=== PATIENT | male | born 1945 | race Caucasian/White ===

== ENCOUNTER → 2017-04-01 | Outpatient (CLI) | payer OTHER | LOC: CIMAGING 09:09 | PROVIDERS: ATTEND Physician Assistant Medical | DX: I48.91 Unspecified atrial fibrillation (principal); Z79.899 Other long term (current) drug therapy | CPT/HCPCS: 71020-PO ==

== ENCOUNTER 2018-01-13 12:27 | Inpatient (IN) | payer OTHER ==
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
[2018-01-13 14:00] LABS: INR 2.72 (0.83-1.16); PROTIME(PATIENT) 28.8 SEC (12.0-15.0)
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
[2018-01-13 15:13] LABS: PLATELET COUNT 123 10^3/uL (150-400)
[2018-01-13] MEDS ORDERED: NALOXONE HCL 0.4 MG/ML INJ IVP PRN (15:19)
[2018-01-13] MEDS ORDERED: ONDANSETRON 4 MG/2 ML VIAL IVP PRN (15:19)
[2018-01-13] MEDS ORDERED: ACETAMINOPHEN 500 MG TAB ONE (15:30)
[2018-01-13] MEDS ORDERED: ACETAMINOPHEN 500 MG TAB PO ONE (15:35)
[2018-01-13] MEDS ORDERED: HUMAN PROTHROMBIN COMPLX(PCC) 1 UNIT/0.04 ML VIAL IV ONE (16:05)
[2018-01-13] MEDS ORDERED: TRANEXAMIC ACID 1,000 MG in NS 100 ML IV ONE (16:05)
[2018-01-13] MEDS ORDERED: TRANEXAMIC ACID 1,000 MG/10 ML VIAL ONE (16:12)
[2018-01-13] MEDS ORDERED: PHYTONADIONE 10 MG in NS 50 ML IV ONE (16:12)
[2018-01-13] MEDS ORDERED: NS 100 ML BAG IV ONE (16:12)
[2018-01-13] MEDS ORDERED: HUMAN PROTHROMBIN COMPLX(PCC) 2,500 UNIT/100 ML VIAL IV ONE (16:15)
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
--- NOTE | 2018-01-13 17:05 | ASMTCMCOM ---
CM Note CM Note Notes: See ER report for details. Met with patient and his daughter Claudette at the bedside while Dr. Tsai and Dr. Frances discussing options reagrding surgery vs. medical management. Patient is alert and oriented, and Claudette is supportive at bedside. Plan at this time is to continue close observation in the ICU and continued medical management/neurological observation. I have provided patient and his daughter with an overview of what to expect in the ICU, and offered to answer any questions at this time. Patient to transfer to ICU as soon as bed available and CM will follow/be available PRN for support Date Signed: 01/13/2018 05:04 PM Electronically Signed By:Erica Lomas RN
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
[2018-01-13] MEDS: ACETAMINOPHEN 325 MG TAB PO PRN (19:29)
[2018-01-13] MEDS: levETIRAcetam 750 MG in NS 100 ML IV SCH (22:36)
[2018-01-13] MEDS: FAMOTIDINE 20 MG/NACL 50 ML IV SCH (22:36)
[2018-01-14] MEDS: ACETAMINOPHEN 325 MG TAB PO PRN (00:47)
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
[2018-01-14] MEDS: levETIRAcetam 500 MG TAB PO SCH ×2 (11:22→20:44)
[2018-01-14] MEDS: levETIRAcetam 750 MG in NS 100 ML IV SCH (12:03)
[2018-01-14] MEDS: FAMOTIDINE 20 MG/NACL 50 ML IV SCH (12:03)
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
[2018-01-14] MEDS ORDERED: HYDROmorphONE/DILAUDID 2 MG TAB PO PRN (15:56)
[2018-01-14] MEDS ORDERED: AMIODARONE HCL 200 MG TAB PO SCH (16:00)
--- NOTE | 2018-01-14 16:04 | TRAUMAPNT ---
Trauma Tertiary Progress Note New Findings: Complains of left chest wall pain - CXR suspicious for at least a left 7th or 8th rib fracture - report pending Assessment/Plan: 01/14/2018 Assessment: Neuro intact. no further CT unless sx noted per neuro May have left rib fracture(s) Plan: CXR report and F/u in AM continue neuro checks F/u labs in AM Transfer to SDU Subjective: my left ribs are sore Objective: Vital Signs Temp Pulse Resp BP Pulse Ox 36.8 C 60 23 H 122/57 H 95 01/14/18 11:45 01/14/18 11:45 01/14/18 11:45 01/14/18 11:45 01/14/18 11:45 01/13/18 01/14/18 01/15/18 05:59 05:59 05:59 Intake Total 300 Output Total 2300 Balance -2000 PT 28.8 SEC (12.0-15.0) H 01/13/18 13:15 INR 2.72 (0.83-1.16) H 01/13/18 13:15 Physical Exam - Physical Exam General Appearance: WD/WN, alert, no apparent distress Neck: non-tender, full range of motion, supple Respiratory: lungs clear, normal breath sounds, other (No E to A changes inspite opf atlectasis seen on CXR. tender to lat compression at mid left chest) Cardiac/Chest: regular rate, rhythm Abdomen: normal bowel sounds, non-tender, soft Male Genitalia: deferred Rectal: deferred Back: Normal inspection Skin: normal color, warm/dry Extremities: normal range of motion, non-tender, normal inspection Neuro/Psych: no motor/sensory deficits, alert, normal mood/affect, oriented x 3 Time Spent w/Patient (minutes): 25
--- NOTE | 2018-01-14 16:08 | TRAUMAPN ---
Trauma Progress Note Assessment/Plan: 01/14/2018 Assessment: Neuro intact. no further CT unless sx noted per neuro May have left rib fracture(s) Plan: CXR report and F/u in AM continue neuro checks F/u labs in AM Transfer to SDU Addendum: Patient is on amiodarone, 100 mg / days for afib. Medication started Objective: Vital Signs Temp Pulse Resp BP Pulse Ox 36.8 C 60 23 H 122/57 H 95 01/14/18 11:45 01/14/18 11:45 01/14/18 11:45 01/14/18 11:45 01/14/18 11:45 01/13/18 01/14/18 01/15/18 05:59 05:59 05:59 Intake Total 300 Output Total 2300 Balance -2000 PT 28.8 SEC (12.0-15.0) H 01/13/18 13:15 INR 2.72 (0.83-1.16) H 01/13/18 13:15
[2018-01-14] MEDS: ATORVASTATIN CALCIUM 10 MG TAB PO SCH (16:48)
[2018-01-14] MEDS: AMIODARONE HCL 200 MG TAB PO SCH (16:48)
[2018-01-14] MEDS: IBUPROFEN 200 MG TAB PO SCH (16:48)
[2018-01-14] MEDS: ACETAMINOPHEN 325 MG TAB PO SCH (16:49)
[2018-01-14] MEDS: LIDOCAINE 4%/MENTHOL 1% PATCH TD SCH (16:51)
[2018-01-14] MEDS: FAMOTIDINE 20 MG TAB PO SCH (20:41)
[2018-01-14] MEDS: PATCH REMOVAL 1 EA PATCH TD SCH (20:41)
[2018-01-15] MEDS: ACETAMINOPHEN 325 MG TAB PO SCH ×3 (02:15→16:19)
[2018-01-15] MEDS: IBUPROFEN 200 MG TAB PO SCH ×4 (02:15→17:47)
[2018-01-15 05:14] LABS: PLATELET COUNT 101 10^3/uL (150-400)
[2018-01-15 05:45] LABS: INR 1.07 (0.83-1.16); PROTIME(PATIENT) 14.1 SEC (12.0-15.0)
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
[2018-01-15] MEDS: levETIRAcetam 500 MG TAB PO SCH ×2 (09:25→21:04)
[2018-01-15] MEDS: AMIODARONE HCL 200 MG TAB PO SCH (09:26)
[2018-01-15] MEDS: ATORVASTATIN CALCIUM 10 MG TAB PO SCH (09:26)
[2018-01-15] MEDS: FAMOTIDINE 20 MG TAB PO SCH ×2 (09:27→21:04)
[2018-01-15] MEDS: LIDOCAINE 4%/MENTHOL 1% PATCH TD SCH (09:28)
[2018-01-15] MEDS ORDERED: BISACODYL 10 MG SUPP PR PRN (16:03)
[2018-01-15] MEDS ORDERED: POLYETHYLENE GLYCOL 3350 17 GM PKT PO PRN (16:03)
[2018-01-15] MEDS ORDERED: MAGNESIUM HYDROXIDE 30 ML UDCUP PO PRN (16:03)
[2018-01-15] MEDS ORDERED: LACTULOSE 20 GM/30 ML UDCUP PO PRN (16:03)
--- NOTE | 2018-01-15 17:01 | ASMTCMCOM ---
CM Note CM Note Notes: Spoke with Jenny at [facility] who states she is still in the process of getting an insurance auth for patient. Jenny states patient will need a back up plan because frequently [employer] plan does not reimburse for inpatient rehab services. She will let us know tomorrow if she has heard anything back from insurance. Will meet with patient tomorrow to explore other possibilities. CM will follow. Date Signed: 01/15/2018 05:00 PM Electronically Signed By:Sandra Wade LCSW
--- NOTE | 2018-01-15 20:38 | TRAUMAPN ---
Trauma Progress Note Assessment/Plan: 01/14/2018 Assessment: Neuro intact. no further CT unless sx noted per neuro May have left rib fracture(s) Plan: CXR report and F/u in AM continue neuro checks F/u labs in AM Transfer to SDU Addendum: Patient is on amiodarone, 100 mg / days for afib. Medication started 01/15/2018 Assessment: Neuro intact. AM ct today shows slight improvement. No chemical DVT prophylaxis yet (no coumadin for 3 weeks) He is up walking, need for SCDs stressed. No rib fractures on CXR, Pain control better with medication adjustment. Plan: Hope to transfer to rehab or med/surg in AM Subjective: I'm feeling better, Moved bowels today Objective: Vital Signs Temp Pulse Resp BP Pulse Ox 36.4 C 51 L 16 115/60 97 01/15/18 16:00 01/15/18 16:00 01/15/18 16:00 01/15/18 16:00 01/15/18 16:00 Laboratory Results 01/15/18 05:00 01/15/18 05:00 01/14/18 01/15/18 01/16/18 05:59 05:59 05:59 Intake Total 300 300 440 Output Total 2300 Balance -2000 300 440 PT 14.1 SEC (12.0-15.0) 01/15/18 05:00 INR 1.07 (0.83-1.16) 01/15/18 05:00 Physical Exam - Physical Exam General Appearance: WD/WN, alert, no apparent distress Neck: non-tender, full range of motion, supple Respiratory: lungs clear, normal breath sounds Cardiac/Chest: regular rate, rhythm Abdomen: normal bowel sounds, non-tender Male Genitalia: deferred Rectal: deferred Back: Normal inspection Skin: normal color, warm/dry Neuro/Psych: no motor/sensory deficits, alert, normal mood/affect, oriented x 3 Time Spent w/Patient (minutes): 25
[2018-01-15] MEDS: SENNOSIDES/DOCUSATE SODIUM TAB PO SCH (21:04)
[2018-01-16] MEDS: ACETAMINOPHEN 325 MG TAB PO SCH ×3 (00:05→18:30)
[2018-01-16] MEDS: IBUPROFEN 200 MG TAB PO SCH ×4 (00:05→18:21)
[2018-01-16] MEDS: PATCH REMOVAL 1 EA PATCH TD SCH (00:07)
[2018-01-16 07:41] VITALS: BP 148/78
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
[2018-01-16] MEDS: FAMOTIDINE 20 MG TAB PO SCH (08:24)
[2018-01-16] MEDS: ATORVASTATIN CALCIUM 10 MG TAB PO SCH (08:24)
[2018-01-16] MEDS: levETIRAcetam 500 MG TAB PO SCH ×2 (08:24→18:20)
[2018-01-16] MEDS: AMIODARONE HCL 200 MG TAB PO SCH (08:24)
[2018-01-16] MEDS: LIDOCAINE 4%/MENTHOL 1% PATCH TD SCH (08:26)
[2018-01-16] MEDS: SENNOSIDES/DOCUSATE SODIUM TAB PO SCH (08:44)
--- NOTE | 2018-01-16 16:33 | ASMTCMCOM ---
CM Note CM Note Notes: Spoke with patient's nurse who states PT/OT have cleared patient to return home. However, she states patient's daughter is concerned he have some home health follow up. Contacted [facility] home health and they will set up a visit to evaluate patient for home health tomorrow or Saturday. They are aware patient may be d/c'ed today. CM available if any further needs arise. Date Signed: 01/16/2018 04:32 PM Electronically Signed By:Sandra Wade LCSW
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
--- NOTE | 2018-01-16 18:03 | TRAUMAPN ---
Trauma Progress Note Assessment/Plan: 01/14/2018 Assessment: Neuro intact. no further CT unless sx noted per neuro May have left rib fracture(s) Plan: CXR report and F/u in AM continue neuro checks F/u labs in AM Transfer to SDU Addendum: Patient is on amiodarone, 100 mg / days for afib. Medication started 01/15/2018 Assessment: Neuro intact. AM ct today shows slight improvement. No chemical DVT prophylaxis yet (no coumadin for 3 weeks) He is up walking, need for SCDs stressed. No rib fractures on CXR, Pain control better with medication adjustment. Plan: Hope to transfer to rehab or med/surg in AM 01/16/2018 Assessment: Doing well. Plan is to discharge home for Home health care today Subjective: no complaints Objective: Vital Signs Temp Pulse Resp BP Pulse Ox 36.7 C 43 L 18 148/78 H 96 01/16/18 07:39 01/16/18 07:39 01/16/18 07:39 01/16/18 07:39 01/16/18 07:39 Laboratory Results 01/15/18 05:00 01/15/18 05:00 01/15/18 01/16/18 01/17/18 05:59 05:59 05:59 Intake Total 300 840 400 Output Total 350 Balance 300 490 400 PT 14.1 SEC (12.0-15.0) 01/15/18 05:00 INR 1.07 (0.83-1.16) 01/15/18 05:00 Physical Exam - Physical Exam General Appearance: WD/WN, alert, no apparent distress Respiratory: chest non-tender, lungs clear, normal breath sounds Cardiac/Chest: regular rate, rhythm Abdomen: normal bowel sounds, non-tender, soft Male Genitalia: deferred Rectal: deferred Back: Normal inspection Skin: normal color, warm/dry Extremities: normal range of motion, non-tender, normal inspection Neuro/Psych: no motor/sensory deficits, alert, normal mood/affect, oriented x 3 Time Spent w/Patient (minutes): 15
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
== END 2018-01-16 18:30 | disposition home health service (06) | DRG 87 ==
LOC: CED 12:27 → F2N 17:34
PROVIDERS: ADMIT Surgery; ATTEND Surgery
PROC: 30283B1 Transfusion of Nonautologous 4-Factor Prothrombin Complex Concentrate into Vein, Percutaneous Approach (ICD-10-PCS; principal; 2018-01-13)
PROC: 30233L1 Transfusion of Nonautologous Fresh Plasma into Peripheral Vein, Percutaneous Approach (ICD-10-PCS; 2018-01-16)
DX: S06.5X0A Traumatic subdural hemorrhage without loss of consciousness, initial encounter (principal); S20.219A Contusion of unspecified front wall of thorax, initial encounter; I48.91 Unspecified atrial fibrillation; Z79.01 Long term (current) use of anticoagulants; V18.0XXA Pedal cycle driver injured in noncollision transport accident in nontraffic accident, initial encounter; E78.5 Hyperlipidemia, unspecified; Z86.718 Personal history of other venous thrombosis and embolism; Z86.711 Personal history of pulmonary embolism
CPT/HCPCS: 70450-PO; 80048-PO; 92507-GN; 92523-GN; 97112-GP; 97116-GP; 97161-GP; 97166-GO; 97530-GP; 97535-GO; C9132; G0515-GO; G8978-GP-CK; G8979-GP-CI; G8987-GO-CK; G8988-GO-CI; G8989-GO-CI; G9165-GN-CI; G9166-GN-CI; G9167-GN-CI; J1953; J2405; J3430; P9016; P9017

== ENCOUNTER 2018-01-28 11:16 | Inpatient (IN) | payer OTHER ==
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
[2018-01-28] MEDS ORDERED: BISACODYL 10 MG SUPP PR PRN (17:24)
--- NOTE | 2018-01-28 17:39 | PDOREHIP ---
[facility]mission [facility] - Admission - 3 Day Assessment Period Admission Date/Day 1: 01/28/18 Day 2: 01/29/18 Day 3: 01/30/18 - Active Diagnoses Comorbidities and Co-existing Conditions at Admission: 17458. None of the Above - Skin Conditions Unhealed Pressure Ulcer (1 or more/Stage 1 or >)-Admission: 0. No
[2018-01-28] MEDS: levETIRAcetam 500 MG TAB PO SCH (21:32)
[2018-01-28] MEDS: traZODone 50 MG TAB PO SCH (21:33)
[2018-01-28] MEDS: ATORVASTATIN CALCIUM 10 MG TAB PO SCH (21:34)
[2018-01-28] MEDS: SENNOSIDES/DOCUSATE SODIUM TAB PO SCH (21:35)
[2018-01-28] MEDS: oxyCODONE IR 5 MG TAB PO PRN (21:40)
[2018-01-28] MEDS: ACETAMINOPHEN 500 MG TAB PO PRN (22:53)
[2018-01-29] MEDS: oxyCODONE IR 5 MG TAB PO PRN ×2 (06:03→15:39)
[2018-01-29 08:14] LABS: PLATELET COUNT 184 10^3/uL (150-400)
[2018-01-29 08:27] LABS: INR 1.03 (0.83-1.16); PROTIME(PATIENT) 13.7 SEC (12.0-15.0)
[2018-01-29] MEDS: AMIODARONE HCL 200 MG TAB PO SCH (08:36)
[2018-01-29] MEDS: levETIRAcetam 500 MG TAB PO SCH ×2 (08:39→20:48)
[2018-01-29] MEDS: POLYETHYLENE GLYCOL 3350 17 GM PKT PO SCH (08:40)
[2018-01-29] MEDS: TAMSULOSIN HCL 0.4 MG CAP PO SCH (08:40)
[2018-01-29] MEDS: SENNOSIDES/DOCUSATE SODIUM TAB PO SCH ×2 (08:41→20:52)
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
[2018-01-29] MEDS: traZODone 50 MG TAB PO SCH (20:49)
[2018-01-29] MEDS: ATORVASTATIN CALCIUM 10 MG TAB PO SCH (20:49)
[2018-01-30] MEDS: TAMSULOSIN HCL 0.4 MG CAP PO SCH (08:34)
[2018-01-30] MEDS: levETIRAcetam 500 MG TAB PO SCH ×2 (08:34→20:33)
[2018-01-30] MEDS: AMIODARONE HCL 200 MG TAB PO SCH (08:34)
[2018-01-30] MEDS: SENNOSIDES/DOCUSATE SODIUM TAB PO SCH ×2 (09:54→22:02)
[2018-01-30] MEDS: POLYETHYLENE GLYCOL 3350 17 GM PKT PO SCH (09:54)
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
[2018-01-30] MEDS: LISINOPRIL 5 MG TAB PO SCH (13:29)
[2018-01-30] MEDS: ATORVASTATIN CALCIUM 10 MG TAB PO SCH (20:33)
[2018-01-30] MEDS: traZODone 50 MG TAB PO SCH (20:34)
[2018-01-30] MEDS: oxyCODONE IR 5 MG TAB PO PRN (20:42)
[2018-01-30] MEDS: ACETAMINOPHEN 500 MG TAB PO PRN (20:43)
[2018-01-31] MEDS: LISINOPRIL 5 MG TAB PO SCH (08:04)
[2018-01-31] MEDS: AMIODARONE HCL 200 MG TAB PO SCH (08:06)
[2018-01-31] MEDS: levETIRAcetam 500 MG TAB PO SCH ×2 (08:06→20:29)
[2018-01-31] MEDS: SENNOSIDES/DOCUSATE SODIUM TAB PO SCH ×2 (08:07→21:18)
[2018-01-31] MEDS: POLYETHYLENE GLYCOL 3350 17 GM PKT PO SCH (08:07)
[2018-01-31] MEDS: TAMSULOSIN HCL 0.4 MG CAP PO SCH (08:07)
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
[2018-01-31] MEDS: ATORVASTATIN CALCIUM 10 MG TAB PO SCH (20:29)
[2018-01-31] MEDS: traZODone 50 MG TAB PO SCH (20:29)
[2018-01-31] MEDS: ACETAMINOPHEN 500 MG TAB PO PRN (20:36)
[2018-01-31] MEDS: oxyCODONE IR 5 MG TAB PO PRN (20:36)
[2018-02-01] MEDS: POLYETHYLENE GLYCOL 3350 17 GM PKT PO SCH (09:08)
[2018-02-01] MEDS: SENNOSIDES/DOCUSATE SODIUM TAB PO SCH ×2 (09:08→21:42)
[2018-02-01] MEDS: AMIODARONE HCL 200 MG TAB PO SCH (09:08)
[2018-02-01] MEDS: TAMSULOSIN HCL 0.4 MG CAP PO SCH (09:08)
[2018-02-01] MEDS: levETIRAcetam 500 MG TAB PO SCH ×2 (09:09→21:50)
[2018-02-01] MEDS: LISINOPRIL 5 MG TAB PO SCH (09:09)
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
[2018-02-01] MEDS: traZODone 50 MG TAB PO SCH (21:50)
[2018-02-01] MEDS: ATORVASTATIN CALCIUM 10 MG TAB PO SCH (21:50)
[2018-02-02] MEDS: ACETAMINOPHEN 500 MG TAB PO PRN (00:12)
[2018-02-02] MEDS: oxyCODONE IR 5 MG TAB PO PRN ×2 (00:13→21:31)
[2018-02-02] MEDS: AMIODARONE HCL 200 MG TAB PO SCH (08:36)
[2018-02-02] MEDS: TAMSULOSIN HCL 0.4 MG CAP PO SCH (08:37)
[2018-02-02] MEDS: levETIRAcetam 250 MG TAB PO SCH ×2 (08:37→21:32)
[2018-02-02] MEDS: SENNOSIDES/DOCUSATE SODIUM TAB PO SCH ×2 (08:37→21:32)
[2018-02-02] MEDS: LISINOPRIL 5 MG TAB PO SCH (08:38)
[2018-02-02] MEDS: POLYETHYLENE GLYCOL 3350 17 GM PKT PO SCH (08:38)
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
[2018-02-02] MEDS: traZODone 50 MG TAB PO SCH (21:32)
[2018-02-02] MEDS: MELATONIN 3 MG TAB PO SCH (21:32)
[2018-02-02] MEDS: ATORVASTATIN CALCIUM 10 MG TAB PO SCH (21:32)
[2018-02-03] MEDS: AMIODARONE HCL 200 MG TAB PO SCH (07:26)
[2018-02-03] MEDS: levETIRAcetam 250 MG TAB PO SCH ×2 (07:26→21:54)
[2018-02-03] MEDS: POLYETHYLENE GLYCOL 3350 17 GM PKT PO SCH (07:27)
[2018-02-03] MEDS: LISINOPRIL 5 MG TAB PO SCH (07:27)
[2018-02-03] MEDS: SENNOSIDES/DOCUSATE SODIUM TAB PO SCH ×2 (07:28→22:18)
[2018-02-03] MEDS: TAMSULOSIN HCL 0.4 MG CAP PO SCH (07:28)
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
[2018-02-03] MEDS: ATORVASTATIN CALCIUM 10 MG TAB PO SCH (21:54)
[2018-02-03] MEDS: LIDOCAINE 4%/MENTHOL 1% PATCH TD SCH (22:06)
[2018-02-03] MEDS: MELATONIN 3 MG TAB PO SCH (22:16)
[2018-02-03] MEDS: traZODone 50 MG TAB PO SCH (22:16)
[2018-02-03] MEDS: oxyCODONE IR 5 MG TAB PO PRN (22:20)
[2018-02-04] MEDS: levETIRAcetam 250 MG TAB PO SCH (08:46)
[2018-02-04] MEDS: AMIODARONE HCL 200 MG TAB PO SCH (08:47)
[2018-02-04] MEDS: TAMSULOSIN HCL 0.4 MG CAP PO SCH (08:47)
[2018-02-04] MEDS: LISINOPRIL 5 MG TAB PO SCH (08:48)
[2018-02-04] MEDS: POLYETHYLENE GLYCOL 3350 17 GM PKT PO SCH (08:48)
[2018-02-04] MEDS: SENNOSIDES/DOCUSATE SODIUM TAB PO SCH ×2 (08:49→21:11)
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
[2018-02-04] MEDS: PATCH REMOVAL 1 EA PATCH TD SCH (10:06)
[2018-02-04] MEDS: traZODone 50 MG TAB PO SCH (21:06)
[2018-02-04] MEDS: MELATONIN 3 MG TAB PO SCH (21:06)
[2018-02-04] MEDS: LIDOCAINE 4%/MENTHOL 1% PATCH TD SCH (21:07)
[2018-02-04] MEDS: ATORVASTATIN CALCIUM 10 MG TAB PO SCH (21:07)
[2018-02-04] MEDS: oxyCODONE IR 5 MG TAB PO PRN (21:10)
[2018-02-04] MEDS: MAG HYDROX/AL HYDROX/SIMETH 30 ML UDCUP PO PRN (22:04)
[2018-02-05] MEDS: AMIODARONE HCL 200 MG TAB PO SCH (08:07)
[2018-02-05] MEDS: LISINOPRIL 5 MG TAB PO SCH (08:09)
[2018-02-05] MEDS: TAMSULOSIN HCL 0.4 MG CAP PO SCH (08:09)
[2018-02-05] MEDS: SENNOSIDES/DOCUSATE SODIUM TAB PO SCH ×2 (08:45→21:58)
[2018-02-05] MEDS: POLYETHYLENE GLYCOL 3350 17 GM PKT PO SCH (08:45)
[2018-02-05] MEDS: PATCH REMOVAL 1 EA PATCH TD SCH (08:45)
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
[2018-02-05] MEDS: ATORVASTATIN CALCIUM 10 MG TAB PO SCH (21:57)
[2018-02-05] MEDS: MELATONIN 3 MG TAB PO SCH (21:57)
[2018-02-05] MEDS: traZODone 50 MG TAB PO SCH (21:57)
[2018-02-05] MEDS: LIDOCAINE 4%/MENTHOL 1% PATCH TD SCH (21:58)
[2018-02-05] MEDS: oxyCODONE IR 5 MG TAB PO PRN (22:05)
[2018-02-05] MEDS: MAG HYDROX/AL HYDROX/SIMETH 30 ML UDCUP PO PRN (22:05)
[2018-02-06] MEDS: ACETAMINOPHEN 500 MG TAB PO PRN (05:53)
[2018-02-06] MEDS: oxyCODONE IR 5 MG TAB PO PRN ×2 (05:53→21:36)
[2018-02-06] MEDS: AMIODARONE HCL 200 MG TAB PO SCH (07:52)
[2018-02-06] MEDS: LISINOPRIL 5 MG TAB PO SCH (07:54)
[2018-02-06] MEDS: TAMSULOSIN HCL 0.4 MG CAP PO SCH (07:55)
[2018-02-06] MEDS: POLYETHYLENE GLYCOL 3350 17 GM PKT PO SCH (07:55)
[2018-02-06] MEDS: SENNOSIDES/DOCUSATE SODIUM TAB PO SCH ×2 (07:56→21:36)
[2018-02-06] MEDS: PATCH REMOVAL 1 EA PATCH TD SCH (07:56)
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
--- NOTE | 2018-02-06 12:12 | PDOREHIP ---
Admission [facility] - Admission - 3 Day Assessment Period Admission Date/Day 1: 01/28/18 Day 2: 01/29/18 Day 3: 01/30/18 Discharge [facility] - Discharge - 3 Day Assessment Period 2 Days Prior to Anticipated Discharge Date: 02/05/18 1 Day Prior to Anticipated Discharge Date: 02/06/18 Anticipated Discharge Date: 02/07/18 - Discharge Skin Conditions Unhealed Pressure Ulcer (1 or more/Stage 1 or >)-Discharge: 0. No
[2018-02-06] MEDS: traZODone 50 MG TAB PO SCH (21:28)
[2018-02-06] MEDS: ATORVASTATIN CALCIUM 10 MG TAB PO SCH (21:28)
[2018-02-06] MEDS: MELATONIN 3 MG TAB PO SCH (21:28)
[2018-02-06] MEDS: LIDOCAINE 4%/MENTHOL 1% PATCH TD SCH (21:30)
[2018-02-06] MEDS: MAG HYDROX/AL HYDROX/SIMETH 30 ML UDCUP PO PRN (21:36)
[2018-02-07] MEDS: AMIODARONE HCL 200 MG TAB PO SCH (07:41)
[2018-02-07] MEDS: POLYETHYLENE GLYCOL 3350 17 GM PKT PO SCH (07:42)
[2018-02-07] MEDS: TAMSULOSIN HCL 0.4 MG CAP PO SCH (07:42)
[2018-02-07] MEDS: SENNOSIDES/DOCUSATE SODIUM TAB PO SCH (07:43)
[2018-02-07] MEDS: PATCH REMOVAL 1 EA PATCH TD SCH (07:43)
[2018-02-07] MEDS: LISINOPRIL 5 MG TAB PO SCH (07:45)
[2018-02-07 08:12] VITALS: BP 120/58
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
== END 2018-02-07 17:00 | disposition home health service (06) | DRG 945 ==
LOC: BREH 16:12
PROVIDERS: ADMIT Physical Medicine & Rehabilitation; ATTEND Physical Medicine & Rehabilitation
DX: S06.5X0D Traumatic subdural hemorrhage without loss of consciousness, subsequent encounter (principal); I62.03 Nontraumatic chronic subdural hemorrhage; I48.91 Unspecified atrial fibrillation; W19.XXXD Unspecified fall, subsequent encounter; V19.9XXD Pedal cyclist (driver) (passenger) injured in unspecified traffic accident, subsequent encounter; R33.9 Retention of urine, unspecified; E78.5 Hyperlipidemia, unspecified; Z86.711 Personal history of pulmonary embolism; Z86.718 Personal history of other venous thrombosis and embolism; G47.00 Insomnia, unspecified; Z79.01 Long term (current) use of anticoagulants
CPT/HCPCS: 92507-GN; 92523-GN; 97110-GO; 97110-GP; 97112-GP; 97116-GP; 97161-GP; 97165-GO; 97530-GO; 97530-GP; 97535-GO; G0515-GO

== ENCOUNTER → 2018-03-28 | Outpatient (CLI) | payer OTHER | LOC: CIMAGING 10:37 | PROVIDERS: ATTEND Internal Medicine Interventional Cardiology | DX: J98.11 Atelectasis (principal); Z79.899 Other long term (current) drug therapy | CPT/HCPCS: 71046-PO ==

== ENCOUNTER 2018-04-21 05:35 | Observation (INO) | payer OTHER ==
[2018-04-21] MEDS ORDERED: ceFAZolin 2 GM/DEXTROSE 100 ML IV ONE (05:47)
[2018-04-21] MEDS ORDERED: LR 1,000 ML IV ONE (05:48)
--- NOTE | 2018-04-21 06:51 | PDHPUP ---
History & Physical Update H&P update statement: This history and physical update is based on an assessment of the patient which was completed after admission or registration (within 24 hours), but prior to the surgery/procedure. H&P update: H&P reviewed & patient examined, no change in patient's condition since H&P completed
[2018-04-21] MEDS ORDERED: BUPIVACAINE/EPI 0.5% 30 ML SDV ONE (06:59)
[2018-04-21] MEDS ORDERED: MIDAZOLAM 2 MG/2 ML VIAL IVP ONE (07:10)
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
[2018-04-21] MEDS ORDERED: MIDAZOLAM 2 MG/2 ML VIAL ONE (07:13)
[2018-04-21] MEDS ORDERED: fentaNYL 250 MCG/5 ML INJ ONE (07:21)
[2018-04-21] MEDS ORDERED: PROPOFOL 200 MG/20 ML VIAL ONE (07:21)
[2018-04-21] MEDS ORDERED: ONDANSETRON 4 MG/2 ML VIAL ONE (08:40)
[2018-04-21] MEDS ORDERED: DEXAMETHASONE 4 MG/ML VIAL ONE (08:40)
[2018-04-21] MEDS ORDERED: ROCURONIUM 100 MG/10 ML VIAL ONE (08:40)
[2018-04-21] MEDS ORDERED: LIDOCAINE 2% 2 ML INJ ONE (08:40)
[2018-04-21] MEDS ORDERED: GLYCOPYRROLATE 0.2 MG/1 ML VIAL ONE ×3 (09:12)
[2018-04-21] MEDS ORDERED: NEOSTIGMINE METHYLSULFATE 5 MG/5 ML SYR ONE (09:12)
--- NOTE | 2018-04-21 09:19 | POSTOPPROG ---
Post Op Note Date of Operation: 04/21/18 Surgeon: Georges Martin Material Flow Analyst: RICARDO Grider Anesthesiologist: Briseida Anesthesia: GET(General Endotracheal) Pre-op Diagnosis: RIH Post-op Diagnosis: BIH Procedure: Robotic assisted bilateral inguinal hernia repair with mesh Findings: large indirect defects bilateral Inf/Abcess present in the surg proc area at time of surgery?: No EBL: Minimal
[2018-04-21] MEDS ORDERED: fentaNYL 100 MCG/2 ML INJ ONE (09:36)
[2018-04-21] MEDS ORDERED: ALBUTEROL 3 ML DEYVIAL IH PRN (09:37)
[2018-04-21] MEDS ORDERED: PROMETHAZINE HCL 25 MG/ML INJ IVP PRN (09:37)
[2018-04-21] MEDS ORDERED: HYDROCODONE/APAP 5/325 TAB PO PRN (09:37)
[2018-04-21] MEDS ORDERED: NALOXONE HCL 0.4 MG/ML INJ IVP PRN (09:37)
[2018-04-21] MEDS ORDERED: LR 500 ML IV PRN (09:37)
--- NOTE | 2018-04-21 09:38 | POSTANESTH ---
Post Anesthetic Evaluation Cardiovascular Status: Normal, Stable Respiratory Status: Similar to Pre-op Cond. Level of Consciousness/Mental Status: Mildly Sleepy, Arousable Pain Control: Adequate, Prn Tx Ordered Nausea/Vomiting Control: Adequate, Prn Tx Ordered Complications Possibly Related to Anesthesia: None Noted
[2018-04-21] MEDS: fentaNYL 100 MCG/2 ML INJ IVP PRN ×3 (09:39→10:10)
--- NOTE | 2018-04-21 11:29 | GOP ---
DATE OF OPERATION: 04/21/2018 SURGEON: Georges Martin MD DIE MACHINE OPERATOR: Romelia Grider, RICARDO ANESTHESIA: General endotracheal. ANESTHESIOLOGIST: Dr. Pacheco Goins. PREOPERATIVE DIAGNOSIS: Right inguinal hernia. POSTOPERATIVE DIAGNOSIS: Bilateral inguinal hernias. PROCEDURE PERFORMED: Robotic assisted laparoscopic bilateral inguinal hernia repair with mesh. FINDINGS: Bilateral large indirect defects successfully reduced, repaired with Bard 3D Light site sp ecific mesh. SPECIMENS: None. ESTIMATED BLOOD LOSS: 10 cc. DESCRIPTION OF PROCEDURE: The patient was greeted in the preoperative suite. Once again, risks, alva efits, and alternatives were discussed. Consent was signed. He was then brought back to the operati ve suite, placed on the OR table in supine position. After all anesthesia machines, including SCDs w ere on and functioning, a world Health Organization time-out was performed. After successful inducti on of general anesthesia, the patient's abdomen was prepped and draped in typical sterile fashion. I commenced the procedure by making a supraumbilical cutdown through which the Veress needle was pass ed. I achieved pneumoperitoneum to 15 mmHg, which was well tolerated by the patient. Through this, I then inserted an 8 mm robotic trocar. Once successfully in the abdomen, I placed 2 additional 8 mm trocars, 1 in the right and 1 in the left upper quadrant, both under direct visualization. Once the y were in, the patient was then placed and gentle Trendelenburg position. The robot was then brought in and docked. I turned my attention first towards the right, where the patient had a moderate sized indirect hernia . I made a peritoneal defect just anterior to the ASIS and carried this medial to the pubic tubercle . I carried my dissection down to the visceral sac. I skeletonized all of the cord structures, iden tified a fairly moderate-sized lipoma on that side as well, which was reduced. After skeletonizing t he cord structures, I interrogated the femoral and direct hernia spaces and found no other significan t findings. I then brought my mesh in. I secured it to the Joseph's ligament with an interrupted 2- 0 Vicryl stitch, as well as medially and laterally to the inferior epigastric vessels. It laid flat without any kinks. I then closed the peritoneal defect with a running V-Loc suture. In the same fashion and turned my attention toward the left side, I created the preperitoneal flap in the same fashion. Again, a moderate-sized indirect defect was identified here. The cord structures were skeletonized, identified no direct femoral defects. A site-specific left-sided mesh was odessa t into place. It was attached to Joseph's ligament as well as medial lateral on either side of the i nferior epigastric vessels. It lay flat without any kinks. The peritoneal flap was then closed in a running fashion. The robot was then undocked. I closed the skin with Monocryl over which Dermabond was placed. The p atient was then extubated in the operative suite and taken to the PACU in satisfactory condition. DRAINS: None. COUNTS: All counts were reported as correct x2. /[id number]/MODL
[2018-04-21] MEDS ORDERED: PETROLAT,WHT/MIN OIL/SOD CHL 3.5 GM OPHT.OINT EACHEYE PRN (13:04)
[2018-04-21] MEDS: TOBRAMYCIN/DEXAMETH 5 ML OPHT.BTL EACHEYE PRN ×2 (14:08→23:01)
--- NOTE | 2018-04-21 15:59 | ASMTCMCOM ---
CM Note CM Note Notes: CM reviewed chart for d/c planning. Pt is a 72 y/o male who had surgery today to repair an inguinal hernaia. When pt was d/miranda from the hospital in January he received home services from [facility], RN/PT/OT. PT/OT evals have not been ordered. Megha CM needs have been identified;CM will follow for changes. D/C Plan: Antivipate independent. Date Signed: 04/21/2018 03:58 PM Electronically Signed By:Ann Melendrez
[2018-04-21] MEDS: DOCUSATE SODIUM 100 MG CAP PO SCH ×2 (16:35→20:56)
[2018-04-21] MEDS: oxyCODONE IR 5 MG TAB PO PRN ×2 (17:57→22:48)
[2018-04-21] MEDS ORDERED: MELATONIN 3 MG TAB PO SCH (21:00)
[2018-04-21] MEDS ORDERED: ATORVASTATIN CALCIUM 10 MG TAB PO SCH (21:00)
[2018-04-22] MEDS: oxyCODONE IR 5 MG TAB PO PRN (02:49)
[2018-04-22] MEDS: DOCUSATE SODIUM 100 MG CAP PO SCH ×2 (08:35→15:43)
[2018-04-22] MEDS ORDERED: LISINOPRIL 5 MG TAB PO SCH (09:00)
[2018-04-22] MEDS ORDERED: AMIODARONE HCL 200 MG TAB PO SCH (09:00)
[2018-04-22] MEDS ORDERED: TAMSULOSIN HCL 0.4 MG CAP PO SCH (09:00)
[2018-04-22] MEDS: TOBRAMYCIN/DEXAMETH 5 ML OPHT.BTL EACHEYE PRN (11:42)
[2018-04-22 15:32] VITALS: BP 112/63
--- NOTE | 2018-04-22 15:36 | PDHOMEO2F ---
Home Oxygen Face to Face Home Orders: I certify that a physician or a nurse practitioner or physician's liaison inspection laboratory assistant has had a [id number] encounter with this patient on the date of this order due to the diagnosis listed, which relates to the primary reason the patient requires home oxygen. Alternative treatments have been tried, or considered, and deemed ineffective. It is anticipated that supplemental oxygen will result in improvement with treatment. Home oxygen qualifying diagnosis: postoperative respiratory insufficiency SpO2 on room air (%): 80 Frequency of home oxygen needed: continuous Home oxygen liters per minute: 2 Home oxygen delivery device: nasal cannula Concentrator: Yes E-tanks for mobility and back up: Yes If ordering portable O2, is the patient mobile in the home?: Yes I certify that, based on these findings, the home oxygen is medically necessary for this patient for the following length of time. Length of time home oxygen needed: 99 years
--- NOTE | 2018-04-22 16:19 | ASDISCHSUM ---
Discharge Information Plan Status:Home with No Needs Medically Cleared to Leave:04/22/2018 Discharge Date:04/22/2018 CM D/C Disposition:Home, Routine, Self-Care ADT D/C Disposition:Home, Routine, Self-Care Projected Discharge Date:04/22/2018 Transportation at D/C: Discharge Delay Reason: Follow-Up Date:04/22/2018 Discharge Slot: Final Diagnosis: Placement Information Patient Contact Information Contact Name:MATTHIAS Relationship:Daughter Address:[address] Work Phone: City:[facility] Phone: State/Zip Code:[place] [address] Email: Financial Information Financial Class:Medicare Advantage Plans Primary Plan Desc:[facility] [employer] PLANS Primary Plan Number:[id number] Secondary Plan Desc: Secondary Plan Number: Assessment Information [facility] CM Progress Note CM Note CM Note Notes: CM reviewed chart for d/c planning. Pt is a 72 y/o male who had surgery today to repair an inguinal hernaia. When pt was d/miranda from the hospital in January he received home services from [facility], RN/PT/OT. PT/OT evals have not been ordered. Megha CM needs have been identified;CM will follow for changes. D/C Plan: Antivipate independent. Date Signed: 04/21/2018 03:58 PM Electronically Signed By:Ann Melendrez Intervention Information
--- NOTE | 2018-04-22 16:20 | ASMTLACE ---
JOSÉ LUIS Length of stay for Answers: 1 day current admission Comorbidities - select Answers: Other Notes: DVT, AFIB all that apply # of Emergency department Answers: 0 visits in the last 6 months Score: 2 Date Signed: 04/22/2018 04:20 PM Electronically Signed By:Kaila Palomo RN
[2018-04-22] MEDS ORDERED: MELATONIN 3 MG TAB PO SCH (21:00)
--- NOTE | 2018-04-28 20:42 | GDS ---
DISCHARGE DIAGNOSES: 1. Bilateral inguinal hernias. 2. Postoperative respiratory insufficiency. HOSPITAL COURSE: The patient was taken to the operating room and underwent bilateral robotic hernia repair. He was subsequently admitted for monitoring and also oxygen needs. He maintained oxygen nee ds throughout the night and following day and was subsequently sent home in stable condition on the 07 13 with home oxygen. He was discharged in stable condition. DISCHARGE MEDICATIONS: Oxycodone as needed for pain and oxygen 2 L at all times. DISPOSITION: Home. FOLLOWUP: He will follow up with his primary care in 1 week to check to see whether or not he still needs supplemental oxygen, and he will follow up with me in 2 weeks for a routine postop visit. /[id number]/MODL
== END 2018-04-22 19:10 | disposition home or self-care (01) ==
LOC: FSGY 05:35 → F3E 09:23 → F1N 10:32
PROVIDERS: ADMIT Surgery; ATTEND Surgery
PROC: 0YUA4JZ Supplement Bilateral Inguinal Region with Synthetic Substitute, Percutaneous Endoscopic Approach (ICD-10-PCS; principal; 2018-04-21 07:15)
PROC: 8E0W4CZ Robotic Assisted Procedure of Trunk Region, Percutaneous Endoscopic Approach (ICD-10-PCS; principal; 2018-04-21 07:15)
DX: K40.20 Bilateral inguinal hernia, without obstruction or gangrene, not specified as recurrent (principal); I10 Essential (primary) hypertension; I48.91 Unspecified atrial fibrillation; Z87.891 Personal history of nicotine dependence; Z79.01 Long term (current) use of anticoagulants; Z86.711 Personal history of pulmonary embolism
CPT/HCPCS: 49650; C1781; G0378; J0690; J1100; J2250; J2405; J2704; J2710; J3010

== ENCOUNTER → 2018-07-18 | Outpatient (CLI) | payer OTHER | LOC: CIMAGING 10:10 | PROVIDERS: ATTEND Family Medicine | DX: S06.5X9D Traumatic subdural hemorrhage with loss of consciousness of unspecified duration, subsequent encounter (principal); I48.91 Unspecified atrial fibrillation; F51.04 Psychophysiologic insomnia | CPT/HCPCS: 70450-PO ==